=== PATIENT | male | born 1965 | race Caucasian/White ===

== ENCOUNTER 2020-04-26 09:55 | Outpatient (REF) | payer BC, SELFPAY ==
[2020-04-26 21:12] LABS: Abs Immature Grans 0.05 10^3/uL (0.0-0.06); Absolute Basophil Count 0.09 10^3/uL (0.0-0.2); Absolute Eosinophil Count 0.24 10^3/uL (0.0-0.7); Absolute Lymphocyte Count 1.89 10^3/uL (1.2-3.4); Absolute Monocyte Count 0.32 10^3/uL (0.1-0.8); Absolute Neutrophil Count 2.22 10^3/uL (1.2-6.7); Basophils % 1.9; HCT 42.3 % (40.0-50.0); HGB 13.8 g/dL (13.5-17.5); Lymphocytes % 39.3; MCH 30.5 pg (27.0-33.0); MCHC 32.6 % (32.0-36.0); MCV 93.6 fL (80-95); MPV 9.2 fL (8.0-11.0); Monocytes % 6.7; Neutrophils % 46.1; Nucleated RBC 0 %; Platelet Count 221 10^3/uL (130-400); RBC 4.52 10^6/uL (4.36-5.78); RDW-SD 41.7 fL; WBC 4.81 10^3/uL (4.4-10.8)
[2020-04-26 21:57] LABS: Anion Gap 3.3 mmol/L (3-11); BUN 17 mg/dL (7-18); CO2 29.7 mmol/L (21.0-32.0); CREATININE 0.99 mg/dL (0.70-1.30); Calcium 8.9 mg/dL (8.5-10.1); Calculated LDL 163 mg/dL (<100); Chloride 106 mmol/L (98-107); Cholesterol 246 mg/dL (<200); Glucose 93 mg/dL (74-106); HDL Cholesterol 62 mg/dL (40-60); Potassium 4.7 mmol/L (3.5-5.1); Sodium 139 mmol/L (136-145); Triglyceride 107 mg/dL (<150)
== END 2020-04-26 10:15 ==
LOC: NCHCN 09:55
PROVIDERS: PCP Internal Medicine; Visit Provider Internal Medicine
DX: Z00.00 Encounter for general adult medical examination without abnormal findings (principal); Z13.220 Encounter for screening for lipoid disorders; H44.002 Unspecified purulent endophthalmitis, left eye; Z77.021 Contact with and (suspected) exposure to benzene
CPT/HCPCS: 80048; 80061; 85025

== ENCOUNTER 2020-11-13 07:55 | Outpatient (CLI) | payer BC, SELFPAY ==
--- NOTE | 2020-11-13 13:00 | DI.RAD_ITS ---
Exam(s) XR ELBOW LT LIMITED EXAM: XR ELBOW LT LIMITED CLINICAL HISTORY: biceps rupture,distal. TECHNIQUE: 2D digital imaging was performed. COMPARISON: No exams were available for comparison FINDINGS: There is no evidence of fracture nor elbow joint effusion. Some fragmentation posteriorly at the ins ertion of the triceps tendon is noted but there is no swelling of the olecranon bursa. No fat pad el evation. Radial head appears unremarkable. There is some bony excrescence consistent with probable element of epicondylitis on the lateral epicondyle. On the lateral view there are 2 subtle 1 millimeter calcific densities in the soft tissues on the vol ar aspect of the proximal forearm. IMPRESSION: DATA REPOSITORY: RADIATION DOSE DELIVERED:
== END 2020-11-13 07:56 | disposition home or self-care (01) ==
LOC: DIORS 11-14 07:55
PROVIDERS: PCP Internal Medicine; Referring Provider Internal Medicine; Visit Provider Student in an Organized Health Care Education/Training Program
DX: S46.212A Strain of muscle, fascia and tendon of other parts of biceps, left arm, initial encounter (principal); M25.522 Pain in left elbow
CPT/HCPCS: 73070

== ENCOUNTER 2020-11-13 17:30 | Outpatient (REF) | payer BC, SELFPAY ==
[2020-11-13 19:12] LABS: Source Nasal/Nares
[2020-11-13 22:07] LABS: COVID-19 PCR Negative (Negative)
== END 2020-11-13 17:31 | disposition home or self-care (01) ==
LOC: LBN 17:30
PROVIDERS: PCP Internal Medicine; Visit Provider Student in an Organized Health Care Education/Training Program
DX: Z20.822 Contact with and (suspected) exposure to COVID-19 (principal); Z01.818 Encounter for other preprocedural examination
CPT/HCPCS: 87635

== ENCOUNTER 2020-11-13 18:32 | Outpatient (CLI) | payer BC, SELFPAY ==
--- NOTE | 2020-11-13 14:00 | DI.MRI_ITS ---
Exam(s) MR UPPER JOINT LT WO EXAM: MR UPPER JOINT LT WO CLINICAL HISTORY: EVALUATE DISTAL BICEPS TENDON TEAR PRIOR TO SURGERY,RUPTURE,S46.212A TECHNIQUE: Multiplanar multisequence MRI of the shoulder was performed. COMPARISON: Elbow x-rays 11/13/2020 reviewed FINDINGS: MARROW:There is no evidence of fracture, bone contusion nor osteochondral defects. Radial head and c apitellum appear unremarkable. ARTICULATIONS: There is no significant elbow joint effusion. There is no swelling of the olecranon b ursa. EPICONDYLES: Minimal increased signal in the common flexor tendon. No prominent epicondylitis. COLLATERAL LIGAMENTS: No significant tears evident. BICEPS TENDON: There is a full-thickness tear of the biceps tendon at its attachment to the radius tu berosity. The distal aspect of the tendon is 1 cm from the radial attachment site with interposition of fluid. Also fluid within the aponeurosis. There is no muscle atrophy. BRACHIALIS TENDON: Intact. No tear nor atrophy. TRICEPS TENDON: Intact. No tear. IMPRESSION: 1. Findings are consistent with a full-thickness tear of the distal biceps tendon at its attachment t o the radial tuberosity. Tendon is retracted approximately 1 cm with fluid interposed between the to rn tendon and the radial tuberosity. There is no evidence of abnormal intraosseous signal in the rad ius at this level. There is fluid within the biceps aponeurosis. There is no evidence of biceps atr ophy. DATA REPOSITORY:
== END 2020-11-13 18:52 ==
PROVIDERS: PCP Internal Medicine; Visit Provider Student in an Organized Health Care Education/Training Program
DX: S46.212A Strain of muscle, fascia and tendon of other parts of biceps, left arm, initial encounter; X58.XXXA Exposure to other specified factors, initial encounter
CPT/HCPCS: 73221

== ENCOUNTER 2020-11-15 07:51 | Day surgery (SDC) | payer BC, SELFPAY ==
[2020-11-15] VITALS (9 sets, daily range): BP systolic 99–130; BP diastolic 65–86; PULSE 51–73; RESP 14–20; TEMP 36.3–36.7; O2SAT 96–98; BMI 28.5
[2020-11-15] MEDS: Lactated Ringers 1,000 ML 100 ML IV (08:49)
--- NOTE | 2020-11-15 09:19 | W.ANESPRE ---
General Info Date of Service Date Performed: 11/15/20 Height: 5 ft 10 in Weight: 90.2 kg Body Mass Index (BMI): 28.5 Surgical Procedure: Operation Date: 11/15/20 11:10 Proposed Procedures Side Surgeon p LT DISTAL BICEPS TENDON REPAIR Left Marko Castaneda MD Meds Allergies and Home Medications Allergies Allergy/AdvReac Type Severity Reaction Status Date / Time No Known Allergies Allergy Verified 11/15/20 08:19 Home Medication Medication Instructions Recorded [id number] serr 2 ea PO DAILY 07/16/16 ibuprofen 200 mg tablet 200 mg PO Q6H PRN 11/13/20 Current Visit Medications: Current Medications Generic Name Dose Route Start Last Admin Trade Name Freq PRN Reason Stop Dose Admin Ephedrine Sulfate 0 mg 11/15/20 09:18 Ephedrine 50 Mg/Ml Vial IVP DIRECTED PRN Fentanyl 0 mcg 11/15/20 09:18 Fentanyl 100 Mcg/2 Ml Vial IVP DIRECTED PRN Hydromorphone HCl 0 mg 11/15/20 09:18 Hydromorphone 2 Mg/Ml Vial IVP DIRECTED PRN Ringer's Solution 1,000 mls @ 100 mls/hr 11/15/20 06:00 11/15/20 08:49 IV 12/14/20 23:59 100 mls/hr INFUSION BRE Administration Cefazolin Sodium/Dextrose 2 gm in 50 mls @ 100 mls/hr 11/15/20 06:00 Ancef Duplex IVPB 12/14/20 23:59 PREOP BRE Promethazine HCl 12.5 mg/ 50.5 mls @ 200 mls/hr 11/15/20 09:18 Sodium Chloride IVPB .X1 DOSE PRN Nausea IV Miscellaneous Supplies 1 each 11/15/20 06:00 Iv Access IV 12/14/20 23:59 DIRECTED BRE Naloxone HCl 0 mg 11/15/20 09:18 Naloxone 0.4 Mg/Ml Vial IVP PRN PRN Oxycodone HCl 5 - 10 mg 11/15/20 07:16 Oxycodone 5 Mg Tab PO Q4H PRN PRN Sodium Chloride 0 ml 11/15/20 06:00 Normal Saline Flush 10 Ml Syr IV 12/14/20 23:59 PRN PRN Sodium Chloride 0 ml 11/15/20 06:00 Normal Saline 10 Ml Vial IJ 12/14/20 23:59 DIRECTED PRN Sterile Water 0 ml 11/15/20 06:00 Water,Injection,Sterile 10 Ml Vial IJ 12/14/20 23:59 DIRECTED PRN PFSH Active Problems Active Problems: Problem Status Onset Code Screening for colorectal cancer Z12.11, Z12.12 Rupture of left distal biceps tendon 11/10/20 S46.212A Surgical History Surgical History Appendectomy bicep reattachment Colonoscopy - MAC (04/10/16) eye surgery History of carpal tunnel repair History of rhinoplasty x2 Tobacco Smoking/Tobacco Use Status: Never Alcohol Alcohol Intake: current Alcohol intake frequency: 0-2 drinks per day Alcohol type: beer Substance Use Substance use: Never Substance use type: does not use Vital Signs and Lab Results Vital Signs Most Recent Vital Signs in EMR: Most Recent Vital Signs Temp Pulse Resp BP Pulse Ox 36.7 C 73 16 130/86 98 11/15/20 08:00 11/15/20 08:00 11/15/20 08:00 11/15/20 08:00 11/15/20 08:00 Lab Results Blood Type / Crossmatch: No Data to Display Complete Blood Count: No Data to Display Complete Metabolic Panel: No Data to Display Liver Function Panel: No Data to Display Coagulation Panel: No Data to Display Cardiac Panel: No Data to Display Arterial Blood Gas: No Data to Display Venous Blood Gas: No Data to Display Pancreas Panel: No Data to Display Thyroid Panel: No Data to Display Infectious Disease: Coronavirus (COVID-19)(PCR) Negative (Negative) 11/13/20 14:58 11/13/20 Coronavirus 2019 Source Nasal/nares 11/13/20 14:58 11/13/20 Blood Cultures: No Data to Display Toxicology Panel: No Data to Display Anesthesia Assessment and Plan Anesthesia History Personal History: No History of Anesthesia Complications and Other (Headache after 2 of his eye surgeries) Family History: No Family History of Anesthesia Complications Exercise Tolerance Exercise Tolerance: Metabolic Equivalents>4 Pertinent Negatives Pertinent Negatives: No Symptoms of GERD, No Major Cardiovascular Symptoms or Complaints, No Major Pulmonary Symptoms or Complaints and No History of CVA/TIA Cardiac & Pulmonary Exam Cardiac Exam: Normal S1/S2 Heart Sounds Pulmonary Exam: Clear Bilateral Breath Sounds Airway Exam Known Difficult Airway: No Mallampati Class: 2 Mouth Opening: Normal (> 3cm) Thyromental Distance: Greater than 3 cm Neck Range of Motion: Full ROM Neck Circumference: Normal Teeth Condition: Normal Dentition ASA Classification ASA Score: ASA 2 Emergency Case?: No NPO Status NPO Status: NPO Clears >2 hours, Solids >8 hours Anesthesia Plan Resuscitation Status: Full Code Anesthesia Technique: General Anesthesia Airway Planned: Endotracheal Tube Pain Management: Surgeon and patient request nerve block Monitors Used: Standard Monitors
--- NOTE | 2020-11-15 10:55 | DI.RAD_ITS ---
Exam(s) XR ELBOW LT LIMITED EXAM: XR ELBOW LT LIMITED CLINICAL HISTORY: LEFT DISTAL BICEPS TENDON RUPTURE TECHNIQUE: 2D and realtime digital imaging was performed. CONTRAST MATERIAL: Refer to procedure report. COMPARISON: No exams were available for comparison FINDINGS: Fluoroscopy was provided for Dr. Castaneda during the performance of a biceps tendon repair. Please ref er to the procedure report for complete details. Ka,r=0.49 mGy IMPRESSION: RADIATION DOSE DELIVERED:
[2020-11-15] MEDS: ceFAZolin 2 GM/50 ML BAG IVPB (11:12)
--- NOTE | 2020-11-15 11:53 | W.ANESNERVE ---
Nerve Block Single Injection Procedure Date and Time Date Performed: 11/15/20 Procedure Start: 10:52 Location Where Procedure Performed Procedure Location: PACU Reason Performed: Postoperative Analgesia Requesting Provider: Marko Castaneda Timeout Performed Timeout Performed: Yes Monitoring Used ECG, Blood Pressure, SpO2 and See EMR for corresponding vital signs Sterility Sterility: Hand Hygiene, Surgical Cap, Surgical Mask, Sterile Gloves and Chlorhexidine Sedation Given During Procedure Sedation Given (Indicate Dose Given): Versed IV Dose:: 2 mg and Ketamine IV Dose:: 30 mg Patient Mental Status Patient Mental Status: Sedate with meaningful communication Nerve Block 1st Nerve Block: Laterality: Left Block Type: Supraclavicular Needle / Catheter Used: 80mm SonoPlex II Local Anesthetic Bolus (Indicate Dose Given): Lidocaine used for local infiltration of skin, Injected in 3-5ml increments after negative blood aspiration, Bupivacaine 0.5% Dose:: 10 ml and Exparel Dose:: 10 ml Additives (Indicate Dose Given): None Ultrasound: Sterile probe cover and gel used Ultrasound Image Saved?: Yes Nerve Stimulator: Not Used Paresthesia: None Procedure Tolerated: No Complications Procedure Outcome: Successful Performed By: Daria Freedman
[2020-11-15] MEDS: fentaNYL 100 MCG/2 ML VIAL IVP (13:52)
--- NOTE | 2020-11-15 14:42 | W.PM.DSUDISC ---
Discharge Plan Disposition Patient Disposition: HOME Condition: Stable Discharge Details Reason For Visit: (L) DISTAL BICEPS TENDON REPAIR Attending Provider: Marko Castaneda Primary Care Provider: Rahul Montgomery Home Meds and New Rx's Prescriptions: New naproxen 250 mg tablet 250 - 500 mg PO BID PRN (Reason: Moderate pain or swelling) Qty: 60 RF: 0 oxycodone 5 mg tablet 5 - 10 mg PO Q4H PRN (Reason: moderate to severe pain) Qty: 16 RF: 0 Continued [id number] serr 1 EACH tablet 2 ea PO DAILY RF: 0 Discontinued ibuprofen 200 mg tablet 200 mg PO Q6H PRNRF: 0 Discharge Instructions Additional Instructions: Surgery: Left distal biceps tendon repair Activity: May use left hand and wrist for light activities of daily living. Do not lift any weight. Sling for 6 weeks when out of the home. Otherwise, may rest forearm on pillows or carry at your side. Gently progress to full range of motion of the elbow. May start strengthening after 8 weeks. Gradual return to heavy lifting after 3 months. A physical therapy prescription will be provided separately in the office at follow-up as needed. Prescriptions: Naproxen 250 mg take 1-2 every 12 hours with a meal as needed for moderate pain Oxycodone 5 mg take 1-2 every 4-6 hours as needed for severe pain You may use iikq-gfk-nsbxebg Tylenol (acetaminophen) as needed for mild pain. These pain medications may be taken all at once or in different combinations as needed. Also, recommend Colace (docusate) as a stool softener as surgery and pain medicine cause constipation. Dressings: Leave splint and dressing in place until follow-up. Keep clean and dry at all times. May shower after 5 days by covering operative site. Follow-up: 10-[address] Castaneda (11:00 AM on 11/26/20) Let us know right away if you develop any redness, drainage, fevers, chest pain, or trouble breathing. Do not drink alcohol or drive for at least 24 hours after anesthesia. Please call the office during business hours with any questions or concerns. Stand Alone Forms: Anesthesia Discharge Inst., Anes.Nerve Block Instructions, Eduardo Tracy ([facility]U) Referrals: Marko Castaneda MD [ [facility] STAFF PHYSICIAN] - (Followup 11/26/20 @ 11:00am) Discharge Orders Discharge Orders: Discharge Order (Routine); Ordered 11/15/20 Ordered By: Marko Castaneda DS: Diagnosis Discharge Diagnosis (1) Rupture of left distal biceps tendon: Status: Acute
--- NOTE | 2020-11-15 14:42 | W.ANESPOSTOP ---
Postoperative Evaluation Date, Time and Location Date Performed: 11/15/20 Time Performed: 14:42 Patient Location: Day Surgery Unit Vital Signs Most Recent Imported Vital Signs: Most Recent Vital Signs Temp Pulse Resp BP Pulse Ox 36.3 C L 55 L 16 111/72 96 11/15/20 14:16 11/15/20 14:16 11/15/20 14:16 11/15/20 14:16 11/15/20 14:16 Pain Score Most Recent Pain Score: Most Recent Pain Score Pain Level 3 11/15/20 14:16 Assessment Mental Status: Awake (Alert & Oriented to Patient Baseline) Airway and Respiratory Function: Patent airway with normal (patient baseline) respiratory exam Cardiovascular Function: Hemodynamically Stable Hydration Status: Adequately Hydrated Nausea & Vomiting: No Nausea or Vomiting Pain: Pain is tolerable per patient Peripheral Nerve Block: Patient did not receive a nerve block
--- NOTE | 2020-11-15 14:59 | W.PM.OP ---
Date of service: 11/15/20 Time of Service: 11:00 Operative Note Operative Note DATE OF PROCEDURE: 11/15/20 PRE-OP DIAGNOSIS: Left distal biceps tendon rupture POST-OP DIAGNOSIS: same PROCEDURE: Left distal biceps tendon repair, CPT #71801 SURGEON: Marko Castaneda POCKETS AND PIECES NECKTIE OPERATOR: Jaya Naranjo ANESTHESIA TYPE: Local By Surgeon, General LMA/ETT and Primary Nerve Block Refer to Anesthesia Record ESTIMATED BLOOD LOSS: 10 TOURNIQUET TIME: 0 COMPLICATIONS: None Patient was transported to: PACU Patient's condition: stable Implants: Arthrex distal biceps button Indications: Please see complete medical record for details. Findings: Complete rupture of the distal biceps tendon Procedure Description: In the operating room, general anesthesia was induced. The patient was positioned supine on the operating room table. All bony prominences were well-padded. Preoperative antibiotics were administered. The left upper extremity was prepped and draped in the usual sterile fashion. The correct patient, procedure, and side of the procedure were all verified prior to incision. Fluoroscopy was used to localize the radial tuberosity. 20 cc of 0.5% bupivacaine containing epinephrine was infiltrated about the planned transverse incision distal to the antecubital fossa. Sharp incision was used through the skin followed by blunt dissection for all deeper layers. Superficial branching veins and nerves were released with Metzenbaums and retracted radially and laterally. The radial tuberosity was approached with the elbow in full supination. Careful hemostasis was achieved by avoiding deeper branching vessels. The radial tuberosity was exposed and cleared of minimal tendon remnant confirming complete rupture. Attention was then turned to finding the tendon and, which was palpated a few centimeters proximal about the antecubital fossa. It was carefully freed from scarring to surrounding tissues and secured with a Kelly clamp and brought out of the wound a few centimeters with the elbow in flexion. The end was trimmed both sized to fit an 8 mm socket. Fiber loop FiberWire was used to prep the end of the tendon and it was placed into a 8 mm graft tube for sizing confirmation and compression. The tendon was then radio placed back in the wound out of the way. Retractors placed with minimal tension exposing the radial tuberosity once again and position and trajectory optimize. Proper location of the guidepin confirmed with AP fluoroscopy. The bicortical spade tip was then carefully drilled in an anterior to posterior direction taking care to stop immediately after penetrating the far cortex. An 8 mm low-profile reamer was then used over the spade tip guidewire to sequentially ream a unicortical socket while taking care to thoroughly irrigate and remove all bony debris and avoid any cortical perforation ulnarly or dorsally. The FiberWire suture ends were then passed appropriately through the cortical button. A free tapered Rosa needle was then used to pass the free end of each FiberWire back through the distal tendon stump a couple centimeters proximally exiting just above the third to last whipstitch and repeated for each free and. The cortical bone was then placed on the handle and manual tension placed on the sutures while the assistant auto center manager maintained appropriate supination. The spade tip guidewire was removed. The socket and wound was copiously irrigated exposing the prepared socket and bicortical path. The button was passed into the socket and through the far cortex. The handle was used to release the button and then downward pressure used to ensure the button deployed on the far side. The sutures were manually withdrawn as unit confirming button fixation and placement on the far cortex. Next, under direct visualization each free suture and was sequentially tensioned delivering the tendon end into the socket. A Lane elevator were used to confirm no tendon catching socket edge and the tendon was fully seated in the socket with creep removed from the construct and tension maintained with the elbow flexed. Final AP and lateral fluoroscopy confirmed appropriate socket creation and hardware placement. Final tension was confirmed to be adequate on the suture ends, which were then securely tied together over the tendon maintaining compression into the socket. The elbow was tested through full extension and pronation and the tendon repair demonstrated excellent anatomy and secure fixation. The elbow was then bumped into gentle flexion to release tension from the repair. The wound was copiously irrigated with normal saline. There was excellent hemostasis deeply and superficially having avoided branching neurovascular structures. Subcutaneous tissue was closed using 2-0 Monocryl. The skin was closed using 3-0 Monocryl in a buried running fashion. Skin glue was applied to the incision followed by a Mepilex bandage. Given stability of repair, the extremity was placed into a sling to maintain 90 degrees of flexion while allowing progressive early motion. Radial pulse was confirmed. The patient awoke from anesthesia without complication and was transferred to the recovery room in a stable condition.
== END 2020-11-15 13:25 | disposition home or self-care (01) ==
PROVIDERS: PCP Internal Medicine; Visit Provider Student in an Organized Health Care Education/Training Program
PROC: (CPT 24341; principal; 2020-11-15 11:00)
DX: S46.212A Strain of muscle, fascia and tendon of other parts of biceps, left arm, initial encounter (principal); X50.0XXA Overexertion from strenuous movement or load, initial encounter; X50.9XXA Other and unspecified overexertion or strenuous movements or postures, initial encounter
CPT/HCPCS: 24342; 76942; 73070; J0690; J1885; J2001; J2250; J2405; J2704; J3010

== ENCOUNTER → 2022-03-03 13:04 | Outpatient (CLI) | payer BC, SELFPAY ==
--- NOTE | 2022-03-03 | DI.RAD_ITS ---
Exam(s) XR HIP RT COMPLETE AP PELVIS EXAM: XR HIP RT COMPLETE AP PELVIS CLINICAL HISTORY: HIP PAIN--M25.559. TECHNIQUE: 2D digital imaging was performed. COMPARISON: No exams were available for comparison FINDINGS: Two views: AP pelvis and lateral right hip. No evidence of pelvic nor hip fracture. Symmetrical minimal narrowing of the hip joints. No promine nt degenerative changes on either side. Bone density is normal. No significant osseous lesions. Ho wever, on the lateral view there is a tiny bony excrescence off the anterior right femoral neck. How ever, this is smaller than the similar finding on the lateral view of the opposite-left hip (see sepa rate dictation). IMPRESSION: Minimal if any significant right hip findings. Mild disc space narrowing noted L4-5 level. DATA REPOSITORY: RADIATION DOSE DELIVERED:
--- NOTE | 2022-03-03 | DI.RAD_ITS ---
Exam(s) XR HIP LT AP LAT ONLY EXAM: XR HIP LT AP LAT ONLY CLINICAL HISTORY: HIP PAIN--M25.559. TECHNIQUE: 2D digital imaging was performed. COMPARISON: CR XR HIP RT COMPLETE AP PELVIS from 03/03/2022 FINDINGS: Single lateral view: No evidence of fracture. Minimal narrowing of the joint space, similar to the opposite side as seen on the AP pelvic view performed same date. However, there is a bony excrescence on the anterior aspect of the femoral neck which probably indica fito an element of CAM-type femoroacetabular impingement. IMPRESSION: As above. 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 DATA REPOSITORY: RADIATION DOSE DELIVERED:
== END ==
PROVIDERS: PCP Internal Medicine; Visit Provider Family Medicine
DX: M25.852 Other specified joint disorders, left hip (principal); M48.061 Spinal stenosis, lumbar region without neurogenic claudication
CPT/HCPCS: 73502

== ENCOUNTER 2023-01-05 10:24 | Outpatient (CLI) | payer BC, SELFPAY ==
--- NOTE | 2023-01-05 08:30 | DI.RAD_ITS ---
Exam(s) XR KNEE LT 3V AP,LAT,RUIZ EXAM: XR KNEE LT 3V AP,LAT,RUIZ CLINICAL HISTORY: LEFT KNEE PAIN. TECHNIQUE: 2D digital imaging was performed of the left knee. Three images were obtained. Merchant ,AP, lateral and PA tunnel views were obtained. COMPARISON: CR LEFT KNEE LIMITED 1 OR 2 VIEWS from 07/16/2016 CR XR HIP LT AP LAT ONLY from 03/03/2022 FINDINGS: BONES: No acute fracture is present. No bony destructive lesion is seen. There is an enthesophyte at the superior patella. JOINTS: The knee is normally aligned. No joint effusion is seen. There is narrowing of the medial fem oral tibial joint in addition to the small osteophyte in the medial tibial plateau. SOFT TISSUE: Normal. IMPRESSION: Mild degenerative changes in the left knee. DATA REPOSITORY: RADIATION DOSE DELIVERED:
== END 2023-01-05 10:25 | disposition home or self-care (01) ==
LOC: DIORS 10:24
PROVIDERS: PCP Internal Medicine; Visit Provider Student in an Organized Health Care Education/Training Program
DX: M17.32 Unilateral post-traumatic osteoarthritis, left knee (principal)
CPT/HCPCS: 73562

== ENCOUNTER 2024-04-24 14:11 | Outpatient (CLI) | payer BC, SELFPAY ==
--- NOTE | 2024-04-24 08:00 | DI.RAD_ITS ---
Exam(s) XR HIP PELVIS ADULT BL EXAM: XR HIP PELVIS ADULT BL CLINICAL HISTORY: OA BILAT HIP. TECHNIQUE: 2D digital imaging was performed of the pelvis and bilateral hips. Three images were obt ained. AP pelvis and lateral views of both hips were obtained. COMPARISON: CR XR HIP LT AP LAT ONLY from 03/03/2022 CR XR HIP RT COMPLETE AP PELVIS from 03/03/2022 FINDINGS: BONES: No acute fracture is present. No bony destructive lesion is seen. The small bilateral bony pro tuberance is seen in the femoral neck on the prior examination are stable. JOINTS: No dislocation present. There is stable bilateral narrowing of the joint spaces of the hips, left greater than right. SOFT TISSUE: There is a tiny stable bony density adjacent to the lateral aspect of the left acetabulu m. IMPRESSION: No progression in the appearance of the hips compared to 03/03/2022. No acute fracture or dislocation. DATA REPOSITORY: RADIATION DOSE DELIVERED:
== END 2024-04-24 14:12 | disposition home or self-care (01) ==
LOC: DIORS 14:12
PROVIDERS: PCP Family Medicine; Visit Provider Student in an Organized Health Care Education/Training Program
DX: M16.0 Bilateral primary osteoarthritis of hip (principal)
CPT/HCPCS: 73521

== ENCOUNTER 2025-03-28 20:55 | Outpatient (REF) | payer BC, SELFPAY | END 2025-03-28 20:56 | disposition home or self-care (01) | LOC: LBN 20:55 | PROVIDERS: PCP Nurse Practitioner Family; Visit Provider Physician Assistant Medical | DX: J02.9 Acute pharyngitis, unspecified (principal) | CPT/HCPCS: 87070; 87081 ==